=== PATIENT | female | born 2000 | race Caucasian/White ===

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

== ENCOUNTER 2021-05-09 11:00 | Emergency (ER) | payer MEDICAID, OTHER ==
[2021-05-09 11:30] LABS: BASOPHILS # (AUTO) 0.1 10^3/uL (0.0-0.1); BASOPHILS % (AUTO) 0.7 %; EOSINOPHILS # (AUTO) 0.2 10^3/uL (0.0-0.7); EOSINOPHILS % (AUTO) 2.3 %; HCT - HEMATOCRIT 41.7 % (37.0-47.0); HGB - HEMOGLOBIN 14.3 g/dL (12.0-16.0); LYMPHOCYTES # (AUTO) 2.2 10^3/uL (1.5-3.5); LYMPHOCYTES % (AUTO) 30.6 %; MEAN CORPUSCULAR HEMOGLOBIN 30.9 pg (27.0-31.0); MEAN CORPUSCULAR HGB CONC 34.3 g/dL (32.0-36.0); MEAN CORPUSCULAR VOLUME 90.1 fL (81.0-99.0); MEAN PLATELET VOLUME 10.1 fL (7.9-10.8); MONOCYTES # (AUTO) 0.6 10^3/uL (0.0-1.0); MONOCYTES % (AUTO) 8.3 %; NEUTROPHILS # (AUTO) 4.1 10^3/uL (1.5-6.6); PLT - PLATELET COUNT 317 10^3/uL (130-450); RED BLOOD COUNT 4.63 10^6/uL (4.20-5.40); RED CELL DISTRIBUTION WIDTH 12.3 % (12.0-15.0); WHITE BLOOD COUNT 7.1 x10^3/uL (4.8-10.8)
[2021-05-09 11:48] LABS: ALBUMIN 4.6 g/dL (3.2-5.5); ALBUMIN/GLOBULIN RATIO 1.3 (1.0-2.2); BILIRUBIN,TOTAL 0.4 mg/dL (0.2-1.0); CALCIUM 9.5 mg/dL (8.5-10.3); CREATININE 0.7 mg/dL (0.4-1.0); POTASSIUM 3.8 mmol/L (3.5-5.0); TOTAL PROTEIN 8.2 g/dL (6.7-8.2)
[2021-05-09 12:06] VITALS: BP 138/90
--- NOTE | 2021-05-09 12:12 | ED Physician Documentation ---
History of Present Illness - Stated complaint Stated Complaint: BLEEDING/SPOTTING - Chief complaint Chief Complaint: Abd Pain - Additonal information Additional information: 21-year-old female presents emergency department for concerns that she may be having a miscarriage. She reports her self is A5. LMP 02/28/2021. Because she missed her menstrual cycle in March she did take a urine home test and it was positive. She had been in the process of trying to assist reestablish care with her OB Dr. Ravinder Cates through [facility] in [place] but this morning she began having vaginal spotting and crampi ng therefore she comes to the ER. She denies any fevers dysuria urgency or frequency. She does have a history of hypertension and anxiety. She was previously prescribed an antidepressant as well as a beta-geovanny. She states that she has been out of this medication for about 2 months and has not taken it. She was unable to get her meds refilled as Dr. Cates's office would not refill without seeing her first. She thinks that at some point in the past she has been referred to a dog handler for her tachycardia but is unsure. She denies any chest pain or shortness of air. 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(s) : None HEENT: None Psych: Depression Musculoskeletal: None Derm: None - Past Surgical History Past Surgical History: Yes /COUNSELOR EDUCATION PROFESSOR: Other - Present Medications Home Medications: Ambulatory Orders Medication Instructions Recorded Confirmed No Known Home Medications 05/09/21 05/09/21 - Allergies Allergies/Adverse Reactions: Allergies Allergy/AdvReac Type Severity Reaction Status Date / Time No Known Drug Allergies Allergy Verified 05/09/21 11:07 - Social History Does the pt smoke?: No Smoking Status: Never smoker Does the pt drink ETOH?: No Does the pt have substance abuse?: No - Immunizations Immunizations are current?: Yes - POLST Patient has POLST: No PD ED PE NORMAL - General General: Alert and oriented X 3, No acute distress, Well developed/nourished - HEENT HEENT: Atraumatic, Moist mucous membranes, Pharynx benign - Neck Neck: Supple, no meningeal sign, No adenopathy, No JVD - Cardiac Cardiac: RRR, No murmur - Respiratory Respiratory: No respiratory distress, Clear bilaterally - Abdomen Abdomen: Normal bowel sounds, Soft, Non tender - Back Back: No CVA TTP, No spinal TTP - Derm Derm: Normal color, Warm and dry, No rash - Extremities Extremities: No deformity - Neuro Neuro: Alert and oriented X 3 Eye Opening: Spontaneous Motor: Obeys Commands Verbal: Oriented GCS Score: 15 - Psych Psych: Normal mood Results - Vitals Vitals: Vital Signs - 24 hr 05/09/21 05/09/21 11:04 12:05 Temperature 36.2 C L 36.5 C Heart Rate 125 H 100 Respiratory 16 16 Rate Blood Pressure 151/100 H 138/90 H O2 Saturation 99 99 Oxygen O2 Source Room air - Labs Labs: Laboratory Tests 05/09/21 05/09/21 05/09/21 11:23 11:23 11:23 WBC 7.1 RBC 4.63 Hgb 14.3 Hct 41.7 MCV 90.1 MCH 30.9 MCHC 34.3 RDW 12.3 Plt Count 317 MPV 10.1 Neut # (Auto) 4.1 Lymph # (Auto) 2.2 [place]igo # (Auto) 0.6 Eos # (Auto) 0.2 Baso # (Auto) 0.1 Absolute Nucleated RBC 0.00 Nucleated RBC % 0.0 Sodium 141 Potassium 3.8 Chloride 107 Carbon Dioxide 27 Anion Gap 7.0 BUN 6 Creatinine 0.7 Estimated GFR (MDRD) 104 Glucose 97 Calcium 9.5 Total Bilirubin 0.4 AST 17 ALT 16 Alkaline Phosphatase 63 Total Protein 8.2 Albumin 4.6 Globulin 3.6 Albumin/Globulin Ratio 1.3 Lipase 29 HCG, Quant Urine Color Urine Clarity Urine pH Ur Specific [place] Urine Protein Urine Glucose (UA) Urine Ketones Urine Occult Blood Urine Nitrite Urine Bilirubin Urine Urobilinogen Ur Leukocyte Esterase Ur Microscopic Review Urine Culture Comments Blood Type O POSITIVE 05/09/21 05/09/21 11:23 12:00 WBC RBC Hgb Hct MCV MCH MCHC RDW Plt Count MPV Neut # (Auto) Lymph # (Auto) [place] # (Auto) Eos # (Auto) Baso # (Auto) Absolute Nucleated RBC Nucleated RBC % Sodium Potassium Chloride Carbon Dioxide Anion Gap BUN Creatinine Estimated GFR (MDRD) Glucose Calcium Total Bilirubin AST ALT Alkaline Phosphatase Total Protein Albumin Globulin Albumin/Globulin Ratio Lipase HCG, Quant < 0.60 Urine Color RED/BLOODY Urine Clarity BLOODY Urine pH 8.0 H Ur Specific [place] 1.015 Urine Protein 100 H Urine Glucose (UA) NEGATIVE Urine Ketones NEGATIVE Urine Occult Blood LARGE H Urine Nitrite NEGATIVE Urine Bilirubin NEGATIVE Urine Urobilinogen 0.2 (NORMAL) Ur Leukocyte Esterase TRACE H Ur Microscopic Review INDICATED Urine Culture Comments Not Reportable Blood Type Departure - Departure Disposition: Home, Self Care Clinical Impression: Vaginal bleeding, Tachycardia Condition: Stable Record reviewed to determine appropriate education?: Yes Follow-Up: Ravinder Cates MD [Primary Care Provider] - Comments: You were seen in the emergency department today for vaginal bleeding and concerns that you could be having a miscarriage. Your last menstrual period was February 28, 2021. You skipped a period in March and reportedly had positive home test. Your blood work today shows that you are not . Your blood work today was all essentially normal. You are noted to have some elevated heart rate which we have seen with previous ER visits. You have been out of your beta-geovanny now for about 2 months. Is very important that you reestablish with Dr. Cates. You should be resumed on your beta-geovanny. They may want to consider outpatient Holter monitoring and/or cardiology referral. If at any point you find that your symptoms are worsening, you develop chest pain or shortness of air you are to return immediately to the ER. The vaginal bleeding today may be a return of your normal menstrual cycle. If at any point your vaginal bleeding is severe which is quantified as saturating a pad or tampon every hour for 6 or more hours, we have any fainting episodes and you are to return immediately to the ER.
[2021-05-09 12:15] LABS: BILIRUBIN,URINE NEGATIVE (NEGATIVE); GLUCOSE, URINE (UA) NEGATIVE (NEGATIVE); KETONES,URINE (UA) NEGATIVE (NEGATIVE); LEUKOCYTE ESTERASE, URINE TRACE (NEGATIVE); NITRITE,URINE NEGATIVE (NEGATIVE); OCCULT BLOOD,URINE LARGE (NEGATIVE); PROTEIN,URINE 100 mg/dL (NEGATIVE); UROBILINOGEN,URINE 0.2 (NORMAL) E.U./dL (NORMAL)
[2021-05-09 12:18] LABS: CLARITY,URINE BLOODY (CLEAR)
[2021-05-09 12:41] LABS: BACTERIA,URINE Few /HPF (None Seen); RBC,URINE TNTC /HPF (0-5); SQUAMOUS EPITHELIAL CELL,UR MOD Squamous (<= Few)
== END 2021-05-09 12:48 | disposition home or self-care (01) ==
LOC: ED 11:00
DX: N93.9 Abnormal uterine and vaginal bleeding, unspecified (principal); R00.0 Tachycardia, unspecified
CPT/HCPCS: 36415; 80053; 81001; 81003; 83690; 84702; 85025; 86900; 86901; 87086; 99282; 99283

== ENCOUNTER 2021-05-25 23:20 | Emergency (ER) | payer OTHER ==
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
[2021-05-26] MEDS: diphenhydrAMINE INJ 50 MG/ML VIAL IM STA (01:48)
[2021-05-26] MEDS: PROMETHAZINE 25 MG/1 ML VIAL IM STA (01:49)
[2021-05-26 02:34] VITALS: BP 131/94
== END 2021-05-26 02:34 | disposition home or self-care (01) ==
LOC: ED 23:20
DX: T76.11XA Adult physical abuse, suspected, initial encounter (principal); S09.90XA Unspecified injury of head, initial encounter; S16.1XXA Strain of muscle, fascia and tendon at neck level, initial encounter; S20.211A Contusion of right front wall of thorax, initial encounter; S56.129A Laceration of flexor muscle, fascia and tendon of unspecified finger at forearm level, initial encounter; Y04.2XXA Assault by strike against or bumped into by another person, initial encounter; F17.200 Nicotine dependence, unspecified, uncomplicated
CPT/HCPCS: 70450; 71101; 72125; 73140; 93005; 96372; 99283; 99284; J1200